=== PATIENT | male | born 1995 | race Caucasian/White ===

== ENCOUNTER 2018-11-19 00:31 | Emergency (ER) | payer BC ==
[~2018-11-19] VITALS: Ht 170.2 cm; Wt 68.0 kg
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
[2018-11-19] MEDS ORDERED: LIDOCAINE 1%-EPI 1:100,000 20 ML VIAL ONE (01:18)
[2018-11-19] MEDS ORDERED: TDAP [DIPH/PERTUSSIS/TET] 0.5 ML VIAL IM ONE ×2 (01:29→01:30)
[2018-11-19] MEDS ORDERED: LIDOCAINE 1%-EPI 1:100,000 50 ML VIAL IJ ONE (01:30)
--- NOTE | 2018-11-19 01:32 | NUR ---
at the bed side for sutures.
--- NOTE | 2018-11-19 01:58 | NUR ---
pt received 4 sutures on the r eyebrow by Candy FERGUSON. no bleeding or discharges noted , pt tolerated the eprocedure well. natural gas technician at the bed side to apply ATB and cover the area with DD.
--- NOTE | 2018-11-19 04:56 | NUR ---
[facility]o izquierdo in [facility] - 11/19/18 at 0503 by RUSSELL SEE DOWNTIME CHART FOR DISCHARGE INFORMATION.
[2018-11-19 04:58] VITALS: BP 129/69
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
== END 2018-11-19 04:58 | disposition home or self-care (01) ==
LOC: ER 00:34
DX: S01.111A Laceration without foreign body of right eyelid and periocular area, initial encounter (principal); V49.49XA Driver injured in collision with other motor vehicles in traffic accident, initial encounter; Y93.89 Activity, other specified; Y92.413 State road as the place of occurrence of the external cause; Y99.8 Other external cause status
CPT/HCPCS: 12011; 90471; 90715; 99283; A6402; A6403; J3490 ×2